=== PATIENT | female | born 1995 | race Caucasian/White ===

== ENCOUNTER → 2021-11-12 | Outpatient (CLI) | payer BC ==
[~2021-11-12] MED LIST: BCP; ESCT10T PO
--- NOTE | 2021-11-12 16:14 | Diagnostic Imaging Report ---
INDICATION: survey. TECHNIQUE: Multiple real-time grayscale images were obtained over the gravid uterus. COMPARISON: None. FINDINGS: There is a single live fetus in a cephalic presentation. heart rate was recorded at 155 BPM. Placenta is posterior. Amniotic fluid index is 10.3 cm. Cervical length is 5.8 cm. kidneys, bladder, and stomach are unremarkable. brain is unremarkable. There is a four-chamber heart. There is a three-vessel cord with normal insertion. The spine is unremarkable. Biometrical measurements are as follows: Biparietal 7.19 cm, age 29 weeks 0 days. Head circumference 26.68 cm, age 29 weeks 1 days. Abdominal circumference 25.31 cm, age 29 weeks 4 days. Femur length 5.56 cm, age 29 weeks 2 days. Sonographic estimate age: 29 weeks 2 days. Sonographic estimated date of delivery: 01/26/2022. Estimated Weight: 1376 gm (+/- 201 gm). LMP percentile: 55%. heart rate: 155 beats per minute. number: 1 of 1. IMPRESSION: Single live IUP of approximately 29 weeks 2 days gestational age. Estimated date of confinement sonographically is 01/26/2022. No complicating features are detected. Dictated by: Dictated on workstation # [id number]
== END ==
LOC: RAD 13:45
PROVIDERS: ATTEND Nurse Practitioner Women's Health
DX: Z34.03 Encounter for supervision of normal first pregnancy, third trimester (principal); Z3A.29 29 weeks gestation of pregnancy
CPT/HCPCS: 76805

== ENCOUNTER 2022-01-22 07:00 | Inpatient (IN) | payer BC ==
[~2022-01-22] VITALS: Ht 165 cm; Wt 104.7 kg
[2022-01-22] VITALS (85 sets, daily range): BP systolic 83–184; BP diastolic 46–98
[~2022-01-22 07:00] MED LIST changes: +CEPH500T PO
[2022-01-22] MEDS ORDERED: D5 LR IV SOLUTION 1,000 ML IV SCH (08:00)
[2022-01-22] MEDS ORDERED: LIDOCAINE/EPI 1%-1:200,000 (XYLOCAINE) 30 ML VIAL INJ ONE (08:00)
[2022-01-22 08:02] LABS: BASOPHILS # (AUTO) 0.1 10^3/uL (0.0-0.1); BASOPHILS % (AUTO) 1 % (0-10); EOSINOPHILS # (AUTO) 0.3 10^3/uL (0.0-0.3); EOSINOPHILS % (AUTO) 3 % (0-10); HEMATOCRIT 37 % (35-52); HEMOGLOBIN 12.4 g/dL (11.5-16.0); LYMPHOCYTES # (AUTO) 2.1 10^3/uL (1.0-4.0); LYMPHOCYTES % (AUTO) 18 % (12-44); MEAN CORPUSCULAR HEMOGLOBIN 32 pg (25-34); MEAN CORPUSCULAR HGB CONC 34 g/dL (32-36); MEAN CORPUSCULAR VOLUME 93 fL (80-99); MEAN PLATELET VOLUME 10.1 fL (9.0-12.2); MONOCYTES # (AUTO) 0.8 10^3/uL (0.0-1.0); MONOCYTES % (AUTO) 7 % (0-12); NEUTROPHILS # (AUTO) 8.2 10^3/uL (1.8-7.8); NEUTROPHILS % (AUTO) 72 % (42-75); PLATELET COUNT 308 10^3/uL (130-400); WHITE BLOOD COUNT 11.4 10^3/uL (4.3-11.0)
--- NOTE | 2022-01-22 08:36 | History & Physical ---
History and Physical Date Seen by Provider: Jan 22, 2022 Time Seen by Provider: 08:34 This patient is a 26-year-old 1 female who was admitted for induction of labor electively at 39 weeks gestation. She denies rupture membranes or bleeding. Her GBS culture was negative. She has no known problems with this , other than an episode of pyelonephritis for which she was hospitalized and treated with IV antibiotics and has been maintained since that time on suppressive oral antibiotics. She has had no recurrent issues with UTI/Placido Allergies are none although she does report having had a reaction sounds like tardive dyskinesia with Reglan Medications are vitamins Medical social and surgical history is are per the antepartum record HEENT exam is normal Neck is supple no lymphadenopathy no thyromegaly Abdomen is gravid soft nontender nondistended Extremities show no clubbing or cyanosis. Is no Homans' sign. Pelvic exam shows a cervix 1 to 2 cm dilated 50% effaced -2 station cervix is very soft and stretchy. There is a vertex presentation amniotomy was performed and a scalp electrode was placed Assessment and plan 39 weeks gestation admitted for elective induction of labor. We anticipate a vaginal delivery but would be prepared for if necessary 39-week gestation admitted for induction of labor Allergies and Home Medications Allergies Coded Allergies: No Known Drug Allergies (Unverified , 03/16/12) Patient Home Medication List Home Medication List Reviewed: Yes Cephalexin (Cephalexin) 500 Mg Tablet, 500 MG PO QID Prescribed by: TAMMI NICOLE on 12/05/211931 Escitalopram Oxalate (Lexapro) 10 Mg Tablet, 1 EACH PO DAILY Prescribed by: DAVID KELLOGG on 03/16/12 1755 [[facility]] , DAILY, (Reported) Entered as Reported by: PANTERA SABA on 03/16/12 1641 TAMMI THURSTON MD Jan 22, 2022 08:35
[2022-01-22] MEDS ORDERED: OXYTOCIN PRE-MIX DRIP 500 ML IV SCH ×2 (08:45→20:15)
[2022-01-22] MEDS ORDERED: OXYTOCIN PRE-MIX DRIP 500 ML IV ONE (08:48)
[2022-01-22] MEDS ORDERED: LACTATED RINGERS 1,000 ML IV ONE ×2 (12:38→17:15)
[2022-01-22] MEDS ORDERED: fentaNYL 2 mcg/ml BUPIVA 0.125 100 ML ONE (12:38)
[2022-01-22] MEDS ORDERED: fentaNYL INJ 100 MCG/2 ML AMP ONE (13:35)
[2022-01-22] MEDS: D5 LR IV SOLUTION 1,000 ML IV SCH ×2 (13:51→17:44)
[2022-01-22] MEDS ORDERED: CATHETER FLUSH 10 ML SYR IV PRN (17:15)
[2022-01-22] MEDS ORDERED: NALOXONE 0.4 MG/ML 1 ML (NARCAN) VIAL IV PRN (17:15)
[2022-01-22] MEDS ORDERED: fentaNYL 2 mcg/ml BUPIVA 0.125 100 ML IV SCH (17:15)
[2022-01-22] MEDS ORDERED: ONDANSETRON 4 MG/2 ML (SDV) Z0FRAN ONE (17:25)
[2022-01-22] MEDS ORDERED: ONDANSETRON 4 MG/2 ML (SDV) Z0FRAN IV PRN (19:15)
[2022-01-22] MEDS ORDERED: oxyCODONE/APAP 5/325MG (PERCOCET 5) TABLET PO PRN (20:15)
[2022-01-22] MEDS ORDERED: TETANUS,DIPTH,PERTUSS P/F (BOOSTRIX) 0.5 ML VIAL IM ONE (20:15)
[2022-01-22] MEDS ORDERED: BENZOCAINE/MENTHOL (DERMOPLAST) 56 ML CAN TP PRN (20:15)
[2022-01-22] MEDS ORDERED: ONDANSETRON 4 MG/2 ML (SDV) Z0FRAN IVP PRN (20:15)
[2022-01-22] MEDS: DOCUSATE SODIUM 100 MG (COLACE) CAP PO SCH (22:20)
[2022-01-22] MEDS: KETOROLAC 30 MG/ML VIAL IVP SCH (22:20)
[2022-01-22] MEDS: CATHETER FLUSH 10 ML SYR IV SCH (23:11)
[2022-01-23 05:00] VITALS: BP 108/62
[2022-01-23] MEDS: KETOROLAC 30 MG/ML VIAL IVP SCH (05:07)
[2022-01-23] MEDS: CATHETER FLUSH 10 ML SYR IV SCH (05:08)
--- NOTE | 2022-01-23 07:40 | Anesthesia-Regional Post-Op ---
Regional Patient Condition Mental Status: Alert, Oriented x3 Circulation: Same as Pre-Op Headache: Absent Sensation: Full Recovery Motor Block: Absent Post Op Complications Complications None Follow Up Care/Instructions Patient Instructions None needed. Anesthesia/Patient Condition Patient is doing well, no complaints, stable vital signs, no apparent adverse anesthesia problems. No complications reported per nursing. COLE ROE CRNA Jan 23, 2022 07:40
[2022-01-23 08:03] VITALS: BP 120/66
--- NOTE | 2022-01-23 08:18 | Progress Note ---
Standard Progress Note Progress Notes/Assess & Plan Date Seen by a Provider: Jan 23, 2022 Time Seen by a Provider: 08:17 Progress/Assessment & Plan This patient is without complaint. She is ambulating, voiding, tolerating oral intake well and has good pain control. She is requesting discharge home. Vital Signs 01/23/22 05:00 Temp 36.5 Pulse 76 Resp 18 B/P (MAP) 108/62 (77) Pulse Ox 97 O2 Delivery Room Air Signs are stable. Patient is afebrile. Fundus is firm below the umbilicus and nontender Extremities show no clubbing cyanosis. There is no Homans' sign. Assessment and plan day #1 status post term spontaneous vaginal labor at 39 weeks gestation. Patient is doing well and will be discharged home with follow-up in clinic Final Diagnosis 39-week spontaneous vaginal TAMMI THURSTON MD Jan 23, 2022 8:18 am
--- NOTE | 2022-01-23 08:20 | Discharge Inst-Surgical ---
Discharge Inst-Surgical Depart Medication/Instructions New, Converted or Re-Newed RX: Other Consults/Follow Up Patient Instructions: As directed Orders & Referrals Follow Up Appt: Call to make follow up appt. for patient in 4 weeks. Activity Per routine post vaginal delivery instructions. Diet as tolerated Patient may shower or tub bathe as desired. Activity Activity as Tolerated: Yes Diet Discharge Diet: No Restrictions TAMMI THURSTON MD Jan 23, 2022 8:20 am
[2022-01-23] MEDS ORDERED: IBUP-1780 PO (08:21)
[2022-01-23] MEDS ORDERED: DOCU100C37 PO (08:21)
--- NOTE | 2022-01-23 08:21 | Discharge Inst-Surgical ---
Discharge Inst-Surgical Consults/Follow Up Orders & Referrals Follow Up Appt: Call to make follow up appt. for patient in 4 weeks. Activity Per routine post vaginal delivery instructions. Please call in RX to patient pharmacy. Diet as tolerated Patient may shower or tub bathe as desired. TAMMI THURSTON MD Jan 23, 2022 8:21 am
--- NOTE | 2022-01-23 08:25 | Labor Progress Note ---
Labor Progress Note Labor Progress Note Date Seen by Provider: Jan 22, 2022 Time Seen by Provider: 19:54 This patient delivered by term spontaneous vaginal delivery at 39 weeks gestation a viable female with Apgars of 7 and 9 at 1 and 5 minutes back to weight of 6 pounds 13 ounces time of 1955. The infant was bulb suctioned on delivery head and again on completion of delivery. There was a very tight nuchal cord that was doubly clamped and then cut to facilitate the delivery the infant was resuscitated at the perineum the umbilical cord was shortened and the baby passed to mom's abdomen. Cord bloods were obtained the placenta delivered spontaneously Tiki it was normal with a three-vessel cord. Cord blood pH was obtained and that result is not available at this time Cervix vagina rectum perineum were examined and found completely intact. Blood loss with delivery was around 150 cc. The patient tolerated the delivery well and remained in the LDR for recovery. Baby remained with mom. As of this dictation this was a delivery note Vitals - Labs Vital Signs - I&O Vital Signs Date Time Temp Pulse Resp B/P (MAP) Pulse Ox O2 Delivery O2 Flow Rate FiO2 01/23/22 05:00 36.5 76 18 108/62 (77) 97 Room Air 01/22/22 23:58 37.4 89 18 113/97 (102) 97 Room Air 01/22/22 22:00 96 107/56 (73) Room Air 01/22/22 21:30 94 113/54 (73) Room Air 01/22/22 21:00 93 127/67 (87) Room Air 01/22/22 20:50 99 122/58 (79) Room Air 01/22/22 20:36 101 123/58 (79) Room Air 01/22/22 20:21 37.4 96 18 92/48 (63) 98 Room Air 01/22/22 20:06 106 140/65 (90) Room Air 01/22/22 19:36 99 117/68 (84) Room Air 01/22/22 19:22 97 88/49 (62) Room Air 01/22/22 19:06 91 88/52 (64) Room Air 01/22/22 18:53 82 85/51 (62) Room Air 01/22/22 18:37 87 95/53 (67) Room Air 01/22/22 18:31 90 98/57 (71) Room Air 01/22/22 18:22 36.7 77 89/52 (64) Room Air 01/22/22 18:08 84 87/52 (64) Room Air 01/22/22 17:52 82 115/57 (76) Room Air 01/22/22 17:38 85 96/54 (68) Room Air 01/22/22 17:23 127 139/67 (91) Room Air 01/22/22 17:22 88 83/46 (58) Room Air 01/22/22 17:07 81 97/46 (63) Room Air 01/22/22 16:52 93 97/55 (69) Room Air 01/22/22 16:42 86 107/53 (71) Room Air 01/22/22 16:22 81 92/52 (65) Room Air 01/22/22 16:07 74 102/55 (71) Room Air 01/22/22 15:52 73 101/58 (72) Room Air 01/22/22 15:38 77 100/50 (67) Room Air 01/22/22 15:23 91 111/55 (73) Room Air 01/22/22 15:07 75 91/52 (65) Room Air 01/22/22 14:55 86 111/52 (71) Room Air 01/22/22 14:35 77 130/64 (86) Room Air 01/22/22 14:29 76 107/60 (76) Room Air 01/22/22 14:22 84 108/53 (71) 99 Room Air 01/22/22 14:18 97 99/51 (67) Room Air 01/22/22 14:17 86 96/53 (67) 98 Room Air 01/22/22 14:14 82 117/58 (77) 98 Room Air 01/22/22 14:10 78 118/58 (78) Room Air 01/22/22 14:08 80 124/61 (82) 96 Room Air 01/22/22 14:05 82 118/56 (76) Room Air 01/22/22 14:04 77 118/56 (76) Room Air 01/22/22 14:02 85 18 109/56 (73) 97 Room Air 01/22/22 14:01 86 108/57 (74) Room Air 01/22/22 14:00 78 104/58 (73) Room Air 01/22/22 13:58 82 108/60 (76) 98 Room Air 01/22/22 13:56 82 109/58 (75) Room Air 01/22/22 13:55 86 16 104/52 (69) Room Air 01/22/22 13:53 80 105/55 (72) Room Air 01/22/22 13:52 90 14 109/53 (71) Room Air 01/22/22 13:51 85 14 109/55 (73) Room Air 01/22/22 13:49 92 98/58 (71) 100 Room Air 01/22/22 13:45 83 110/54 (72) Room Air 01/22/22 13:44 85 120/59 (79) Room Air 01/22/22 13:43 96 110/55 (73) Room Air 01/22/22 13:42 84 111/58 (75) Room Air 01/22/22 13:41 99 103/50 (67) Room Air 01/22/22 13:40 114 110/58 (75) Room Air 01/22/22 13:38 103 120/57 (78) 98 Room Air 01/22/22 13:34 99 121/53 (75) 98 Room Air 01/22/22 13:29 95 110/62 (78) 96 Room Air 01/22/22 13:25 83 127/59 (81) Room Air 01/22/22 13:23 85 121/60 (80) 98 Room Air 01/22/22 13:20 87 127/64 (85) Room Air 01/22/22 13:16 94 139/72 (94) 98 Room Air 01/22/22 13:12 83 138/75 (96) Room Air 01/22/22 13:09 87 119/57 (77) Room Air 01/22/22 13:08 93 131/59 (83) 96 Room Air 01/22/22 13:02 80 174/76 (108) Room Air 01/22/22 12:48 88 184/98 (126) Room Air 01/22/22 12:31 73 134/73 (93) Room Air 01/22/22 12:18 74 119/68 (85) 01/22/22 12:01 75 134/72 (92) Room Air 01/22/22 11:46 36.8 82 18 133/86 (102) Room Air 01/22/22 11:31 83 118/59 (78) Room Air 01/22/22 11:17 82 108/57 (74) Room Air 01/22/22 11:01 76 149/74 (99) Room Air 01/22/22 10:46 72 120/59 (79) Room Air 01/22/22 10:31 78 113/64 (80) Room Air 01/22/22 10:16 85 114/67 (83) Room Air 01/22/22 10:01 78 116/66 (83) Room Air 01/22/22 09:46 75 109/59 (76) 01/22/22 09:31 37.0 85 16 99/54 (69) 01/22/22 09:15 77 124/76 (92) Room Air 01/22/22 09:00 76 20 120/70 (87) Room Air I & O 01/23/22 07:00 Intake Total 4580 ml Balance 4580 ml TAMMI THURSTON MD Jan 23, 2022 8:25 am
[2022-01-23] MEDS: DOCUSATE SODIUM 100 MG (COLACE) CAP PO SCH ×2 (09:18→20:59)
[2022-01-23 12:08] VITALS: BP 112/64
[2022-01-23] MEDS: IBUPROFEN 800 MG (MOTRIN) TAB PO SCH (12:59)
[2022-01-23 20:55] VITALS: BP 116/76
[2022-01-24 00:19] VITALS: BP 112/74
[2022-01-24 04:58] VITALS: BP 119/74
[2022-01-24] MEDS: DOCUSATE SODIUM 100 MG (COLACE) CAP PO SCH (08:40)
[2022-01-24] MEDS: IBUPROFEN 800 MG (MOTRIN) TAB PO SCH ×3 (08:40→08:42)
[2022-01-24 08:44] VITALS: BP 121/74
--- NOTE | 2022-01-24 10:28 | Progress Note ---
Standard Progress Note Progress Notes/Assess & Plan Date Seen by a Provider: Jan 24, 2022 Time Seen by a Provider: 10:27 Progress/Assessment & Plan This patient is without complaint. She is ambulating, voiding, tolerating oral intake well and has good pain control. She is requesting discharge home. Vital Signs 01/23/22 05:00 Temp 36.5 Pulse 76 Resp 18 B/P (MAP) 108/62 (77) Pulse Ox 97 O2 Delivery Room Air Signs are stable. Patient is afebrile. Fundus is firm below the umbilicus and nontender Extremities show no clubbing cyanosis. There is no Homans' sign. Assessment and plan day #1 status post term spontaneous vaginal labor at 39 weeks gestation. Patient is doing well and will be discharged home with follow-up in clinic January 24, 2022 Patient is without complaint. She is ambulating, voiding, tolerating oral diet well has good pain control. Patient is requesting discharge home. Vital Signs Date Time Temp Pulse Resp B/P (MAP) Pulse Ox O2 Delivery O2 Flow Rate FiO2 01/24/22 08:44 36.4 74 16 121/74 (90) 98 Room Air 01/24/22 04:58 36.6 66 16 119/74 (89) 100 Room Air 01/24/22 00:19 35.7 72 16 112/74 (87) 100 Room Air 01/23/22 20:55 36.3 74 16 116/76 (89) 99 Room Air 01/23/22 12:08 36.0 79 18 112/64 (80) 98 Room Air Vital signs are stable. Patient is afebrile. The abdomen is benign. Fundus is firm below the umbilicus and nontender. Extremities show no clubbing cyanosis. There is no Homans' sign. Assessment and plan day #2 status post term spontaneous vaginal delivery doing well. Plan is for discharge home with follow-up in clinic Final Diagnosis 39-week spontaneous vaginal delivery TAMMI THURSTON MD Jan 24, 2022 10:28 am
== END 2022-01-24 12:10 | disposition home or self-care (01) | DRG 807 ==
LOC: LDRP 07:10
PROVIDERS: ADMIT Obstetrics & Gynecology; ATTEND Obstetrics & Gynecology
PROC: 10E0XZZ Delivery of Products of Conception, External Approach (ICD-10-PCS; principal; 2022-01-22)
DX: O80 Encounter for full-term uncomplicated delivery (principal); Z37.0 Single live birth; Z3A.39 39 weeks gestation of pregnancy
CPT/HCPCS: 36415; 85025; 86780; 86850; 86900; 86901